=== PATIENT | female | born 1970 | race African-American/Black ===

== ENCOUNTER 2025-02-04 11:19 | Emergency (ER) | payer SELFPAY ==
[2025-02-04] VITALS (28 sets, daily range): BP systolic 138–208; BP diastolic 79–126
[~2025-02-04] VITALS: Ht 170.2 cm; Wt 70.0 kg
[~2025-02-04 11:19] MED LIST: AMOXICILLIN500 MG PO; LISINOPRIL10 MG PO
[2025-02-04 12:08] LABS: BASO% 0.4 % (0-3); EOS% 0.1 % (0-8); HEMATOCRIT 42.2 % (37.0-47.0); HEMOGLOBIN 14.1 g/dl (12.0-16.0); IMMATURE GRANULOCYTES 0.2 % (0.0-5.0); LYMPH% 37.4 % (15-41); MEAN CELL VOLUME 99.5 fL CALC (80.0-100.0); MEAN CORPUSCULAR HGB 33.3 pG CALC (26.0-32.0); MEAN CORPUSCULAR HGB CONC 33.4 g/dL CAL (32.0-36.0); MONO% 7.4 % (2-13); NEUT# 4.42 thou/uL (2.00-7.15); NEUT% 54.5 % (42-76); RED BLOOD COUNT 4.24 mill/uL (4.20-5.60); RED CELL DISTRI WIDTH 12.7 % (11.5-15.5)
[2025-02-04] MEDS ORDERED: LABETALOL HCL 20 MG/ 4 ML CARTRG IV ONE ×2 (12:15→13:20)
[2025-02-04] MEDS ORDERED: ONDANSETRON HCl 4 MG/2 ML SDV IV ONE (12:15)
[2025-02-04 12:36] LABS: ALBUMIN 4.3 g/dL (3.2-5.0); BILIRUBIN, TOTAL 1.2 mg/dL (0.02-1.3); CREATININE 0.8 mg/dL (0.5-1.0); POTASSIUM 3.7 mmol/l (3.5-5.1); TOTAL PROTEIN 7.6 g/dL (6.3-8.2)
[2025-02-04] MEDS ORDERED: METOPROLOL TART50 MG PO (14:49)
[2025-02-04] MEDS ORDERED: METOPROLOL TARTRATE 50 MG/TAB PO ONE (14:50)
== END 2025-02-04 15:18 | disposition home or self-care (01) | DRG 310 ==
LOC: ED 11:19
PROVIDERS: Family Medicine
DX: R00.2 Palpitations (principal); I10 Essential (primary) hypertension
CPT/HCPCS: J2405